=== PATIENT | male | born 1935 | race Two or more races ===

== ENCOUNTER 2017-03-28 06:57 | Day surgery (SDC) | payer BC ==
[~2017-03-28] VITALS: Ht 162.6 cm; Wt 59.9 kg
[~2017-03-28 06:57] MED LIST: CLOP75TA41 PO; LOVA40TA72 PO; METO25TA62 PO
[2017-03-28] MEDS ORDERED: LIDOCAINE 2%HCL (LOCAL ANESTH.) INJ 20ML MDV ONE (07:16)
[2017-03-28] MEDS ORDERED: IODIXANOL 320MG/ML 100ML BTL IV ONE (07:16)
[2017-03-28] MEDS ORDERED: ANGIOMAX 250 MG VIAL IV ONE (07:23)
[2017-03-28] MEDS ORDERED: fentaNYL CITRATE 100 MCG/2 ML VL ONE (07:23)
[2017-03-28] MEDS ORDERED: MIDAZOLAM HCL 1MG/1ML-2 ML VIAL ONE (07:23)
[2017-03-28] MEDS ORDERED: VERAPAMIL 2.5MG/ML INJ 2ML VIAL IV ONE (07:23)
[2017-03-28] MEDS ORDERED: SODIUM CHL 0.9% 0 ML ONE (07:24)
== END 2017-03-28 11:05 ==
LOC: CATH 06:57
PROVIDERS: ATTEND Internal Medicine
DX: I25.10 Atherosclerotic heart disease of native coronary artery without angina pectoris (principal); Z95.1 Presence of aortocoronary bypass graft
CPT/HCPCS: 93458; J2250; Q9967